=== PATIENT | female | born 1935 | race Caucasian/White ===

== ENCOUNTER 2020-09-02 12:37 | Emergency (ER) | payer MEDICARE ==
[~2020-09-02] VITALS: Ht 175.3 cm; Wt 52.6 kg
[2020-09-02] MEDS ORDERED: CALCIUM500 MG PO (12:56)
[2020-09-02] MEDS ORDERED: BENTYL 10 MG CA10 MG PO (12:56)
[2020-09-02] MEDS ORDERED: CARVEDILOL6.25 M1 PO (12:57)
[2020-09-02] MEDS ORDERED: REMERON15 M2 PO (12:57)
[2020-09-02] MEDS ORDERED: FUROSEMIDE 20 M20 M1 PO (12:58)
[2020-09-02] MEDS ORDERED: FOLIC ACID1 MG PO (12:58)
[2020-09-02] MEDS ORDERED: SOTALOL 120 MG120 MG PO (12:58)
[2020-09-02] MEDS ORDERED: D3-200050 MCG PO (12:58)
[2020-09-02] MEDS ORDERED: B12 ACTIVE1000 MCG PO (12:58)
[2020-09-02] MEDS ORDERED: DIGOX250 MCG PO (12:59)
[2020-09-02] MEDS ORDERED: FISH OIL 1,0001 EAC9 PO (12:59)
[2020-09-02] MEDS ORDERED: IRON325 M1 PO (12:59)
[2020-09-02 13:17] LABS: HEMATOCRIT 43.7 % (37.0-47.0); HEMOGLOBIN 14.5 gm/dL (12.0-15.0); MCH 28.2 pg (26.0-34.0); MCHC 33.3 g/dL (28.0-37.0); MCV 84.8 fL (80.0-100.0); MPV 7.9 fl. (7.2-11.1); NUCLEATED RBCS 0 /100WBC; PLATELET COUNT* 167 thou/uL (150-400); RBC 5.15 mil/uL (4.20-5.00); RDW-CV 14.9 % (10.5-14.5); WBC 6.5 thou/uL (4.0-11.0)
[2020-09-02 13:26] LABS: CALCIUM 9.3 mg/dL (8.5-10.1); CREATININE 1.1 mg/dL (0.6-1.3); POTASSIUM 4.3 mmol/L (3.5-5.1)
[2020-09-02 13:31] LABS: ALBUMIN 4.1 g/dL (3.4-5.0); TOTAL BILIRUBIN 1.5 mg/dL (<0.1-1.0); TOTAL PROTEIN 7.4 g/dL (6.4-8.2)
[2020-09-02 13:45] LABS: ABSOLUTE EOSINOPHILS 0.1 thou/uL (0.0-0.7); ABSOLUTE LYMPHOCYTES 0.3 thou/uL (0.8-5.3); ABSOLUTE MONOCYTES 0.9 thou/uL (0.0-1.2); ABSOLUTE NEUTROPHILS 5.2 thou/uL (1.6-8.1); PLATELET ESTIMATE ADEQUATE
[2020-09-02 14:00] VITALS: BP 133/85
--- NOTE | 2020-09-02 14:16 | EKG ---
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 Frame: [facility] : 1935 Requested By: Shavon Mcneal Order Number: [id number] MD: Gasper Khanna Measurements Intervals [place] Rate: 68 P: 102 MO: 173 QRS: -70 QRSD: 166 T: 105 QT: 458 QTc: 488 Interpretive Statements Atrial-ventricular dual-paced rhythm No further analysis attempted due to paced rhythm No previous ECG available for comparison Electronically Signed On 09-02-2020 14:16:36 CDT by Gasper Khanna [email or web address] <ELECTRONICALLY SIGNED> By: Gasper Khanna MD, [facility] 09/02/20 1416 1258 1258 Gasper Khanna MD, [facility] /EPI
== END 2020-09-02 14:00 | disposition home or self-care (01) ==
LOC: M.ERS 12:37
PROVIDERS: Physician Assistant
DX: K59.00 Constipation, unspecified (principal)

== ENCOUNTER 2021-05-26 15:59 | Emergency (ER) | payer MEDICARE ==
[~2021-05-26] VITALS: Ht 175.3 cm; Wt 48.5 kg
[~2021-05-26 15:59] MED LIST: B12 ACTIVE1000 MCG PO; BENTYL 10 MG CA10 MG PO; CALCIUM500 MG PO; CARVEDILOL6.25 M1 PO; D3-200050 MCG PO; DIGOX250 MCG PO; FISH OIL 1,0001 EAC9 PO; FOLIC ACID1 MG PO; FUROSEMIDE 20 M20 M1 PO; IRON325 M1 PO; REMERON15 M2 PO; SOTALOL 120 MG120 MG PO
[2021-05-26] MEDS ORDERED: LOVASTATIN 20 M20 MG PO (16:31)
[2021-05-26] MEDS ORDERED: VENLAFAXINE H37.5 M1 PO (16:31)
[2021-05-26] MEDS ORDERED: NORCO 10-325 T1 EACH PO (16:31)
[2021-05-26 18:03] LABS: ABSOLUTE BASOPHILS 0.1 thou/uL (0.0-0.2); ABSOLUTE EOSINOPHILS 0.1 thou/uL (0.0-0.7); ABSOLUTE LYMPHOCYTES 0.7 thou/uL (0.8-5.3); ABSOLUTE NEUTROPHILS 9.1 thou/uL (1.6-8.1); BASOPHILS 0.6 %; EOSINOPHILS 0.6 %; HEMATOCRIT 44.7 % (37.0-47.0); HEMOGLOBIN 14.5 gm/dL (12.0-15.0); LYMPHOCYTES 6.2 %; MCH 26.9 pg (26.0-34.0); MCHC 32.4 g/dL (28.0-37.0); MONOCYTES 9.1 %; MPV 7.3 fl. (7.2-11.1); NUCLEATED RBCS 0 /100WBC; PLATELET COUNT* 290 thou/uL (150-400); POLYS 83.5 %; RBC 5.38 mil/uL (4.20-5.00); RDW-CV 15.2 % (10.5-14.5); WBC 10.9 thou/uL (4.0-11.0)
[2021-05-26 18:16] LABS: CALCIUM 9.6 mg/dL (8.5-10.1); CREATININE 1.3 mg/dL (0.6-1.3); POTASSIUM 3.7 mmol/L (3.5-5.1)
[2021-05-26 18:21] LABS: ALBUMIN 3.4 g/dL (3.4-5.0); TOTAL PROTEIN 6.8 g/dL (6.4-8.2)
[2021-05-26 21:27] LABS: URINE BLOOD TRACE (Negative); URINE CLARITY CLEAR; URINE COLOR YELLOW; URINE GLUCOSE-RANDOM NEGATIVE (Negative); URINE KETONES TRACE (Negative); URINE NITRITE-REFLEX NEGATIVE (Negative); URINE PROTEIN NEGATIVE (Negative); URINE UROBILINOGEN 0.2 E.U./dl (0.2-1.0)
[2021-05-26 21:36] LABS: URINE BILIRUBIN 1+ (Negative); URINE LEUKOCYTES-REFLEX 2+ (Negative)
[2021-05-26 21:37] LABS: ICTOTEST (BILI CONFIRMATORY) Negative (Negative)
[2021-05-26] MEDS ORDERED: CEPHALEXIN500 MG PO (21:42)
[2021-05-26 21:50] VITALS: BP 105/73
[2021-05-26 21:55] LABS: SQUAMOUS >10 Many /LPF (0-3)
[2021-05-26 21:56] LABS: HYALINE CASTS 4-10 Moderate /LPF (None Seen)
[2021-05-26 21:58] LABS: BACTERIA-REFLEX 1-9 Few /HPF (None Seen); CRYSTALS None Seen /LPF (None Seen); URINE RBC 3-10 Few /HPF (0-2)
--- NOTE | 2021-05-28 13:12 | EKG ---
[place] [address] ELECTROCARDIOGRAM REPORT Name: FAY PRATT Room: [facility]#: [id number] Admission: 05/26/21 Attend Phys: Discharge: 05/26/21 Date of : 39 Date of Service: 05/26/211739 Report #: [id number] THIS REPORT FOR: //name// 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: : 1935 Requested By: Shavon Mcneal Order Number: [id number] MD: Corby Acuna Measurements Intervals [place] Rate: 60 P: 107 MD: 183 QRS: -74 QRSD: 170 T: 110 QT: 500 QTc: 500 Interpretive Statements A-V dual-paced rhythm with some inhibition No further analysis attempted due to paced rhythm Compared to ECG 09/02/2020 12:58:38 AV dual-paced complex(es) or rhythm no longer present Electronically Signed On 05-28-2021 13:12:40 [employer] by Corby Acuna [email or web address] <ELECTRONICALLY SIGNED> By: Corby Acuna MD, FACC 05/28/21 1312 1740 1740 Corby Acuna MD, FACC /EPI
== END 2021-05-26 21:50 | disposition home or self-care (01) ==
LOC: M.ERS 15:59
PROVIDERS: Physician Assistant
DX: M48.54XA Collapsed vertebra, not elsewhere classified, thoracic region, initial encounter for fracture (principal); Z20.822 Contact with and (suspected) exposure to COVID-19; N39.0 Urinary tract infection, site not specified; R91.8 Other nonspecific abnormal finding of lung field; R53.1 Weakness; Z90.710 Acquired absence of both cervix and uterus; Z79.899 Other long term (current) drug therapy; Z79.891 Long term (current) use of opiate analgesic